=== PATIENT | female | born 1990 | race Caucasian/White ===

== ENCOUNTER 2019-10-01 08:49 | Inpatient (IN) | payer OTHER ==
[~2019-10-01] VITALS: Ht 170.2 cm; Wt 93.4 kg
[2019-10-01] VITALS (12 sets, daily range): BP systolic 113–135; BP diastolic 67–87
[~2019-10-01 08:49] MED LIST: ALL10TAB29 PO; CALC500C16 PO; COLA100C5 PO; CVS10CAP8 PO; PRENCHW PO
[2019-10-01] MEDS ORDERED: SING10TA32 PO (09:13)
[2019-10-01] MEDS ORDERED: LACTATED RINGER'S 1000 ML IV STA (12:51)
[2019-10-01] MEDS ORDERED: LR 1,000 ML IV SCH (12:51)
[2019-10-01] MEDS ORDERED: BUTORPHANOL 2 MG/ML INJ (J0595) IV PRN (13:00)
[2019-10-01] MEDS ORDERED: PROMETHAZINE INJ 25 MG/ML VIAL (J2550) IV ONE (13:00)
[2019-10-01 13:30] LABS: HEMATOCRIT 39.5 % (36.0-47.0); HEMOGLOBIN 13.2 g/dl (12.0-15.5); MEAN CORPUSCULAR HEMOGLOBIN 28.7 pg (27.0-33.0); MEAN CORPUSCULAR HGB CONC 33.4 g/dl (32.0-36.5); MEAN CORPUSCULAR VOLUME 85.9 fl (80.0-96.0); PLATELET COUNT, AUTOMATED 229 10^3/uL (150-450); WHITE BLOOD COUNT 10.2 10^3/uL (4.0-10.0)
--- NOTE | 2019-10-01 13:45 | HPEPDOC ---
Obstetrical History & Physical General Date of Admission Oct 01, 2019 at 12:51 History of Present Illness Zoe is a 29yo with SIUP at 38w6d by lmp c/w 10wk u/s presenting with pa inful, regular ctx since earlier this morning that wrap around her back. No LOF, no vaginal bleeding, good movement. No f/c/n/v/CP/SOB. 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, anxiety/depression (stable no meds) Height (inches): 67 Pre- weight (lbs.): 201 Admission Weight (lbs.): 206 Change in Weight (lbs.): 5 Past Medical History Past Obstetrical History : Past Obstetrical History: [facility] [employer] [facility] History: Abnormal Pap (HGSIL) Past Medical History Medical History History significant for gastric bypass (jose luis-en-Y) in 2018, starting BMI 31, asthma (stable no meds), and 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, anxiety/depression (stable no meds) Surgical History: Other (jose luis-en-Y 2017) Family History Significant Family History: Noncontributory Social History Marital Status: Family situation: Spouse/partner home Psychosocial History: Anxiety, Depression * Smoker: non-smoker Alcohol: Denies Drugs: denies Imunizations Tdap status: current Influenza Status: current Allergies Coded Allergies: No Known Allergies (Unverified , 09/30/19) Medications Scheduled Calcium Carbonate (Calcium) 500 Mg Tab.chew, 500 MG PO BID Cetirizine HCl (Cetirizine HCl) 10 Mg Tablet, 10 MG PO DAILY Docusate Sodium (Colace) 100 Mg Capsule, 100 MG PO DAILY Melatonin (Melatonin) 10 Mg Capsule, 10 MG PO DAILY Montelukast Sodium (Singulair) 10 Mg Tablet, 1 TAB PO DAILY Pnv No.118/Iron Fumarate/FA ( 19 Chewable Tablet) 1 Each Tab.chew, 1 CHW PO DAILY Physical Examination Physical Examination GENERAL: Alert and oriented times three. ABDOMEN: Gravid and non-tender to touch. FETUS: Is vertex (VTX) by sterile vaginal examination (SVE) EXTREMITIES: No edema Vital Signs/I&O Vital Signs Date Time Temp Pulse Resp B/P (MAP) Pulse Ox O2 Delivery O2 Flow Rate FiO2 10/01/19 09:04 98.5 96 18 114/78 (90) 98.5 Laboratory Data 24H LABS Laboratory Tests 2 10/01/19 12:55: Serology Scanned Report Hepatitis B Testing CBC/BMP 28wk H/H 12.9/38, plt 246 Pertinent Laboratoy Data Blood Type: B- RBC Antibody Screen: Negative HIV: Negative Hepatitis B: Negative Hepatitis C: Unknown Rapid Plasma Reagin: Nonreactive Rubella: Immune Varicella: Immune Chlamydia/Gonorrhea: Negative Group B Streptococcus: Negative Anatomy Ultrasound Ultrasound Date: Jul 18, 2019 Placenta Location: Anterior Normal Anatomy: Yes Placenta Previa: No Other Ultrasounds Sep growth 55%ile Steroid Therapy Steroid Therapy: No Vaginal Examination Dilation: 5 cm Effacement: 80% Station: -1, 0 Cervical Consistency: Soft Cervical Position: Anterior Presentation: Cephalic presentation Assessment Heart Rate (FHR): 130 Variability: Moderate Accelerations: Positive Decelerations: None Tocometer Contractions: Yes Frequency: regular, every 2-5 min. Duration: greater than 60 seconds Strength: palpated as moderate Assessment/Plan Assessment Zoe is a 29yo with SIUP at 38w6d by lmp c/w 10wk u/s in active labor with regular ctx, SCE now 5/80/-1 after two hours of monitoring. Cat I FHRT. Vitals wnl, afebrile, benign exam. Cephalic by SCE. GBS negative. Patient had been counseled previously regarding possibility of need for section because she has a hx of HGSIL and had what was thought to be significant bleeding at time of prior colposcopy. However, on counseling the patient today, we discussed that cervical dysplasia is not an indication for section per ACOG guidelines. We discussed she may have a section for arrest of dilation/descent or NRFHT like any labor patient, but at this point my recommendation is for continuing with labor and vaginal delivery if feasible since the risks for her are much less if she has a vaginal delivery. We discussed the specific risks of vaginal delivery vs section. At the end of the counseling, patient was given time to consider, and she is now opting for vaginal delivery. 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 Diet: clear liquids Group B Streptococcus (GBS) negative Labs and intravenous (IV) per unit protocol. Lactated Ringers (LR): Bolus 500 mL, then at 125 mL/hr. Anticipate normal spontaneous delivery () Candidate for epidural in active labor and IV stadol/phenergan in latent labor MD Madelaine Mathews Katrina D MD Oct 01, 2019 13:44
--- NOTE | 2019-10-01 17:09 | IPNPDOC ---
Text Note Date of Service The patient was seen on 10/01/19. NOTE Intrapartum Note Pt doing well, requested AROM to get things moving. Does not yet request pain medication. 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 Debbie Burkett MD VS,Diane, I+O VS, Diane, I+O Laboratory Tests 10/01/19 13:13 Vital Signs Date Time Temp Pulse Resp B/P (MAP) Pulse Ox O2 Delivery O2 Flow Rate FiO2 10/01/19 11:29 98.4 107 18 133/87 (102) 98.4 Debbie Burkett MD Oct 01, 2019 17:09
[2019-10-01] MEDS ORDERED: OXYTOCIN 30 UNITS IN 0.9% NaCl 500ML IV BAG (J2590) As Ordered ONE (19:13)
[2019-10-01] MEDS ORDERED: MEASLES,MUMPS,RUBELLA VACCINE INJ (MMR-II) (90707) SC SCH (22:00)
[2019-10-01] MEDS ORDERED: IBUPROFEN 800 MG TAB PO PRN (22:00)
[2019-10-01] MEDS ORDERED: ACETAMINOPHEN TAB 650MG DOSE (2X325MG) PO PRN (22:00)
[2019-10-01] MEDS ORDERED: IBUPROFEN 600 MG TAB PO PRN (22:00)
[2019-10-01] MEDS ORDERED: RHOGAM 300 MCG (1500 IU) INJ (J2790) IM SCH (22:00)
[2019-10-01] MEDS ORDERED: DOCUSATE SODIUM 100 MG CAP PO PRN (22:00)
[2019-10-01] MEDS ORDERED: OXYTOCIN DRIP 30 UNITS in IV 1 EA IV SCH (22:00)
--- NOTE | 2019-10-01 22:07 | DNPDOC ---
[facility] Delivery Note Delivery Note DATE OF DELIVERY: 01 October 2019 PREDELIVERY DIAGNOSIS: 38w6d gestation and labor hx of jose luis-en-y gastric bypass POST DELIVERY DIAGNOSIS: Delivered. PROCEDURE: Spontaneous vaginal delivery CORRECTIONS UNIT SUPERVISOR: Dr. Debbie Burkett MD ANESTHESIA: 1% lidocaine for repair ESTIMATED BLOOD LOSS: 300 mL. FINDINGS: 6 pound 2 ounce (2780g) male infant, Score 9/9 DELIVERY SUMMARY: Zoe is a 29yo [id number] s/p uncomplicated at 2043 on 10/01/2019 after presenting in active labor at 38w6d. She progressed in labor normally until AROM was performed (clear) and advanced to C/C/0 at which point she began pushing. Infant's head delivered OA, restituted CESAR. Right anterior shoulder delivered followed by posterior shoulder and corpus. was vigorous with spontaneous cry, placed on maternal abdomen and cord was clamped x2 and cut by FOB after approximately 2 minutes. 's nose and mouth were suctioned with bulb suction. Apgars 9/9. Cord blood obtained for MBT B neg. With traction on the umbilical cord and uterine massage, placenta delivered spontaneously and intact with 3 vessel centrally inserted cord. More uterine massage was performed and fundus was then firm at u-1cm. Inspection of perineum and vagina revealed superficial bilateral labial lacerations and a deeper left sulcal laceration which were all repaired in routine fashion with 3-0 and 4-0 vicryl with complete hemostasis and reapproximation. All counts correct x2. Mom and infant were doing well when I left the room. MD Madelaine Mathews Katrina D MD Oct 01, 2019 22:03
[2019-10-02] MEDS: ACETAMINOPHEN 500 MG TAB PO PRN ×3 (03:01→23:57)
[2019-10-02] MEDS ORDERED: LIDOCAINE 1% MDV 20ML VIAL As Ordered ONE (03:31)
[2019-10-02] MEDS ORDERED: LIDOCAINE 1% MDV 20ML VIAL SC ONE ×2 (03:45→04:00)
[2019-10-02 05:50] VITALS: BP 124/77
--- NOTE | 2019-10-02 08:07 | IPNPDOC ---
Progress Note Date of Service: Oct 02, 2019 Day#: 1 Progress Note PPD 1 SUBJECT: Zoe is a 29yo [id number] s/p uncomplicated late in the evening on 10/01/2019 after presenting in active labor at 38w6d, doing well day # 1. She has been ambulating, voiding spontaneously without issue and tolerating regular diet. Bottle feeding by choice though still interested in or pumping. Reports lochia is like a heavy period. No f/c/n/v/CP/SOB. OBJECTIVE: VITAL SIGNS: Within normal limits, afebrile. Alert and oriented times three. Abdomen: Fundus firm at U-2. Soft, NTTP. Extremities: no edema of BLE ASSESSMENT: Zoe is a 29yo [id number] s/p uncomplicated late in the evening on 10/01/2019 after presenting in active labor at 38w6d, doing well day # 1. Hx is significant for jose luis-en-Y gastric bypass in 2018. Vitals within normal limits, afebrile, hemodynamically stable with no evidence of infection. PLAN: 1. Routine care 2. Tylenol for pain. 3. Encourage breast feeding (or pumping) and ambulation. 4. Unsure about contraception, will discuss more at PP visit 5. Regular diet 6. Possible d/c tomorrow if meeting all milestones Dr. Debbie Burkett MD VS, I&O, 24H, Fishbone Vital Signs/I&O Vital Signs Date Time Temp Pulse Resp B/P (MAP) Pulse Ox O2 Delivery O2 Flow Rate FiO2 10/02/19 05:50 98.7 100 17 124/77 (93) 98 Room Air 98.7 I&O- Last 24 Hours up to 6 AM 10/02/19 05:59 Intake Total 120 ml Output Total 1100 ml Balance -980 ml Laboratory Data 24H LABS Laboratory Tests 2 10/01/19 12:55: Serology Scanned Report Hepatitis B Testing 10/01/19 13:13: Nucleated Red Blood Cells % (auto) 0.0, Hepatitis B Surface Antigen (Rapid) NEGATIVEL CBC/BMP Laboratory Tests 10/01/19 13:13 Debbie Burkett MD Oct 02, 2019 08:07
[2019-10-02] MEDS: PRENATAL VITAMINS CHEWABLE TABLET PO SCH (08:17)
[2019-10-02] MEDS: DOCUSATE SODIUM 100 MG CAP PO SCH (08:17)
[2019-10-02] MEDS: DIBUCAINE 1% OINTMENT 30GM TOP PRN (17:09)
[2019-10-02 17:57] VITALS: BP 124/63
[2019-10-02] MEDS ORDERED: ALBUTEROL 90 MCG/ACT 8GM HFA INHALER INH PRN (18:00)
[2019-10-03 05:58] VITALS: BP 129/66
[2019-10-03] MEDS ORDERED: DIBU10OI TOP (07:13)
[2019-10-03] MEDS ORDERED: VENTAER INH (07:13)
[2019-10-03] MEDS ORDERED: IBUP80TA PO (07:13)
[2019-10-03] MEDS: PRENATAL VITAMINS CHEWABLE TABLET PO SCH (07:53)
[2019-10-03] MEDS: DOCUSATE SODIUM 100 MG CAP PO SCH (07:53)
[2019-10-03] MEDS: DIBUCAINE 1% OINTMENT 30GM TOP PRN (07:53)
--- NOTE | 2019-10-03 10:07 | IPN ---
DATE OF SERVICE: 10/02/2019 This patient requested circumcision of her male . After discussing risks and benefits of circumcision and medical and nonmedical indications, penile block and aftercare expressed understandings of penile block aftercare and bleeding, signed the consent form. All questions were answered. 20 minute discussion. We await clearance by the felling bucking supervisor.
--- NOTE | 2019-10-03 18:01 | DSES ---
DATE OF ADMISSION: 10/01/2019 DATE OF DISCHARGE: 10/03/2019 A 29-year-old 1, para 1, came in at 38 weeks and 6 days in active labor, was booked for elective primary section; however, after discussion, decided to have a vaginal delivery. She had a spontaneous vaginal delivery of a male, 6 pounds 2 ounces, 2780 grams, scores of 9 and 9 at one and five minutes respectively. She had a superficial tear, which was repaired in the usual fashion using 1% lidocaine. Her risk factors: BMI of 31, Rh negative, high grade squamous intraepithelial lesion (HSIL), asthma and anxiety and depression. Her admitting hemoglobin 13.2, hematocrit 39.5 and platelets are 229. Her vital signs on discharge: Her blood pressure was 129/66, respirations 17, pulse 91 and temperature 97.6. We discussed phlebitis, cystitis, mastitis, endometritis, cellulitis, diet, exercise, pain management, perineal and breast care. The patient was discharged with medications at home, has a six week followup at [facility]. All questions were answered, 20-minute discussion. She is awaiting consultation with the vocational coordinator.
== END 2019-10-03 13:00 | disposition home or self-care (01) | DRG 807 ==
LOC: M LDO 08:49 → M LDI 12:51 → M OBS 23:38
PROVIDERS: ADMIT Obstetrics & Gynecology; ATTEND Obstetrics & Gynecology
PROC: 10E0XZZ Delivery of Products of Conception, External Approach (ICD-10-PCS; principal; 2019-10-01)
PROC: 10907ZC Drainage of Amniotic Fluid, Therapeutic from Products of Conception, Via Natural or Artificial Opening (ICD-10-PCS; 2019-10-01)
PROC: 0HQ9XZZ Repair Perineum Skin, External Approach (ICD-10-PCS; 2019-10-01)
DX: O99.844 Bariatric surgery status complicating childbirth (principal); Z37.0 Single live birth; Z3A.38 38 weeks gestation of pregnancy; O99.89 Other specified diseases and conditions complicating pregnancy, childbirth and the puerperium; R87.613 High grade squamous intraepithelial lesion on cytologic smear of cervix (HGSIL); O70.0 First degree perineal laceration during delivery

== ENCOUNTER 2020-10-21 11:00 | Outpatient (CLI) | payer OTHER ==
[~2020-10-21] VITALS: Ht 170.2 cm; Wt 90.5 kg
[~2020-10-21 11:00] MED LIST changes: -ALL10TAB29 PO; +CETI-24 PO; +DIBU10OI TOP; +IBUP80TA PO; +SING10TA32 PO; +VENTAER INH
[2020-10-21] MEDS ORDERED: IRON65TA2 PO (11:32)
[2020-10-21] MEDS ORDERED: FOLI20CA PO (11:32)
[2020-10-21] MEDS ORDERED: EMER1CHW PO (11:32)
[2020-10-21 11:35] VITALS: BP 131/90
[2020-10-21 12:01] VITALS: BP 136/85
[2020-10-21 13:27] VITALS: BP 120/84
--- NOTE | 2020-10-21 14:02 | REP ---
INDICATION: DI/DI TWINS GROWTH DOPPLERS AND BPP. COMPARISON: None. TECHNIQUE: Transabdominal obstetric sonography. FINDINGS: Diamniotic dichorionic twin gestation is observed. Twin a is cephalic along the maternal right. Placenta is anterior grade 2 without evidence of previa. heart rate is recorded at 141 beats per minute. Amniotic fluid is subjectively normal. The deepest pocket of amniotic fluid surrounding twin a is 3.2 cm. No anomaly is seen for fetus A. Following anatomic structures are identified and felt to be unremarkable: cranium, intracranial contents, lungs, four-chamber heart with left and right ventricular outflow tract views, diaphragm, left-sided stomach, abdominal wall cord insertion, kidneys and bladder, three-vessel cord. Nuchal fold face and profile spine, and extremities are less than optimally seen. Biometry chart fetus a: BPD 8.4 cm, 33 weeks 4 days Head circumference 31.2 cm, 34 weeks 6 days Abdominal circumference 26.6 cm, 30 weeks 5 days Femur length 6.0 cm, 31 weeks 0 days Humeral length 5.3 cm, 30 weeks 6 days HC AC ratio 1.17 (0.87628.13) Cephalic index normal 0.74 Estimated weight fetus a 1764 g, 3.89 lb, less than 3rd percentile for 34 weeks 1 day. Biophysical profile score 8 out of a possible 8 SD ratio in the umbilical cord artery by Doppler slightly elevated 4.92 (1.73-3.67) Fetus B is cephalic along the maternal left. Placenta is posterior grade 2 without evidence of previa. heart rate is recorded at 141 beats per minute. Amniotic fluid is subjectively normal. Deepest pocket of amniotic fluid surrounding fetus B is 3.8 cm. No anomaly is seen in fetus B. The following anatomic structures are identified felt to be unremarkable: cranium and intracranial contents, left and right ventricular outflow tract view, diaphragm, left-sided stomach, right and left kidney, urinary bladder, spine, three-vessel cord. Facial lungs and four-chamber heart view are less than optimal. Abdominal wall cord insertion is less than optimally seen. Extremities are less than optimally seen. Biometry chart: Fetus B BPD 8.4 cm, 33 weeks 6 days Head circumference 31.3 cm, 35 weeks 1 day Abdominal circumference 30.1 cm, 34 weeks 0 days Femur length 6.6 cm, 34 weeks 0 days Humeral length 5.9 cm, 34 weeks 1 day HC AC ratio normal 1.04 Cephalic index normal 0.74 Estimated weight 2350 g, 5 lb 2 oz, 57th percentile for 34 weeks 1 day Biophysical profile score 8 out of a possible 8 SD ratio slightly elevated 3.87 (1.7323.67) Closed cervical length measured transabdominally is 2.7 cm. IMPRESSION: Living twin intrauterine gestation. Fetus a is smaller. Estimated weight less than 3rd percentile whereas fetus B is in the 44th percentile. Asymmetric IUGR suspected. <Electronically signed by Kvng Cornejo > 10/21/20 [id number]
[2020-10-21 14:57] VITALS: BP 132/85
--- NOTE | 2020-10-21 16:39 | IPNPDOC ---
Text Note Date of Service The patient was seen on 10/21/20. NOTE 30yo at 34+1wks sent to L&D for labor check from clinic. She presented to clinic for COB appt and was c/o leaking and irregular ctx's. She also reportedly was feeling unwell noting she was having loose stools and fatigue. She was noted to have work-up in clinic with membranes found to be intact with SVE 3/50/-3. She was also noted to have recent growth scan showing deceleration in growth of baby A from 37th percentile on to 6th percentile on . She reports she is very anxious about delivery as she desires a vaginal . ROS: Denies VB or DFM. Denies BANDA, visual changes, RUQ pain, chest pain, SOB. Vitals: normotensive, afebrile NST: reactive for both babies and cat I on prolonged monitoring Frederic: irregular ctx's occurring [id number] apart PE: General: well-appearing, sitting upright in bed in NAD HEENT: NC/AT, airway patent and self-maintained RESP: no exaggerated respiratory effort appreciated ABD: gravid with S=D, nontender, soft : NEFG, SVE 3/50/-3 (unchanged from prior exam) very posterior, no abnml vaginal discharge appreciated, no pooling of fluid Ext: no edema Labs: GBS collected in clinic Rads: BPP showed 8/8 for both babies, IUGR at <3rd %ile for baby A, 44th percentile for baby B, MVP normal for both babies, umbilical dopplers slightly elevated for both babies with no reverse diastolic flow CONSULT: called [facility] and spoke with Dr. Meneses with decision made to give BTMZ today/tomorrow with [facility] appt on [id number]. IOL tentatively scheduled for 36wks on [id number] A/P: 30yo at 34+1wks presenting for labor check. BPP reassuring of both babies. Patient not in labor with no cervical change. -Patient to f/u in 24hrs for repeat BTMZ dosing, plan for NST tomorrow at time of presentation -Patient to f/u for [facility] appt as scheduled for IUGR of baby A on -Patient to f/u for COB appt next week -GBS collected today, patient to f/u for results All questions answered. Med rec done. VS,Fishbone, I+O VS, Fishbone, I+O Vital Signs Date Time Temp Pulse Resp B/P (MAP) Pulse Ox O2 Delivery O2 Flow Rate FiO2 10/21/20 14:57 103 18 132/85 (101) 10/21/20 11:35 97.8 RAMÍREZ CARVER DO Oct 21, 2020 16:39
== END 2020-10-21 16:10 | disposition home or self-care (01) ==
LOC: M LDO 11:00
DX: O30.009 Twin pregnancy, unspecified number of placenta and unspecified number of amniotic sacs, unspecified trimester (principal); Z3A.34 34 weeks gestation of pregnancy
CPT/HCPCS: 59025; 76811; 76812; 76819; 76820; 96372; G0378; G0463; J0702

== ENCOUNTER 2020-10-22 14:55 | Outpatient (CLI) | payer OTHER ==
[~2020-10-22] VITALS: Ht 170.2 cm; Wt 90.9 kg
[~2020-10-22 14:55] MED LIST changes: +EMER1CHW PO; +FOLI20CA PO; +IRON65TA2 PO
[2020-10-22] MEDS ORDERED: BETAMETHASONE SOLUSPAN 6MG/ML 5ML VIAL (J0702 PER 3MG) IM ONE (15:15)
[2020-10-22 15:17] VITALS: BP 140/80
--- NOTE | 2020-10-22 16:29 | IPNPDOC ---
Text Note Date of Service The patient was seen on 10/22/20. NOTE 30 yo at 34+2 weeks gestation with Di/Di twins presents to L&D for her 2nd BTMZ injection and an NST. Zoe reports feeling well and has no complaints. She feels much better as compared to yesterday and denies any significant contractions, leakage of fluid, or vaginal bleeding. She endorses movement. Vitals - VSS, afebrile, normotensive, non tachycardic General - AAOX3, sitting up in bed, NAD, pleasant and conversant Abdomen - Gravid uterus. No fundal tenderness. Extremities - No edema NST: Cat I tracing and reactive for both fetuses with moderate variability,+accels, no decels. No ctx on toco. BTMZ IM administered in triage. Reassuring statuses on NST. BTMZ administered. Zoe has no complaints today. She has an appointment in [place] with [facility] tomorrow due to IUGR of Baby A. She is to return to care sooner for bleeding, contractions, leakage of flu id, decreased movement, or any other urgent concerns. All questions answered. Manny Casillas DO VS,Joane, I+O VS, Fishbone, I+O Vital Signs Date Time Temp Pulse Resp B/P (MAP) Pulse Ox O2 Delivery O2 Flow Rate FiO2 10/22/20 15:17 97.9 107 20 140/80 (100) Room Air MANNY CASILLAS DO Oct 22, 2020 16:29
== END 2020-10-22 16:25 | disposition home or self-care (01) ==
LOC: M LDO 14:55
PROVIDERS: ATTEND Registered Nurse
DX: O30.043 Twin pregnancy, dichorionic/diamniotic, third trimester (principal); Z3A.34 34 weeks gestation of pregnancy
CPT/HCPCS: 96372; G0378; J0702

== ENCOUNTER 2020-10-27 11:34 | Outpatient (CLI) | payer OTHER ==
[~2020-10-27] VITALS: Ht 170.2 cm; Wt 89.0 kg
[2020-10-27 11:55] VITALS: BP 124/82
--- NOTE | 2020-10-27 14:02 | IPNPDOC ---
Obstetrical Progress Note Date of Service Oct 27, 2020 Subjective 30 yo at 35w0d with NOAH 01 DEC 2020 presents to L&D from the clinic for prolonged monitoring for tachycardia for both twin A&B. She reports that she has been feeling "crampy for a while now." She denies contractions, leaking of fluid, vaginal bleeding, and reports positive movement x2. Objective She was placed on NST for 2 hours. NST reviewed: Reactive x2 Twin A:130/moderate variability/accels present/absent decels Twin B: 135/moderate variability/accels present/absent decels No contractions noted Cervical exam is unchanged from when she was last checked at her appointment in the clinic today around 1030. Assessment: Di/Di Twins Hx of bariatric surgery Asthma growth discordance: IUGR of twin A Tocometer Contractions: No Sterile Vaginal Examination Dilation: 3 cm Effacement (%): 70% Station: -2 Cervical Consistency: Medium Cervical Position: Posterior Assessment and Plan Age: 9 : 2 Term: 1 Pre-term: 0 Abortions: 0 Livin EGA at Admission: 35 (+0) Weeks & Days 35w0d Status: Reassuring Anticipate: Other (Discharge to home, certified not in labor) Additional Comments Recommended to increase hydration to 3-4 liters of water per day FKC and PTL precautions discussed Recommended to keep all appointments with [facility] Return to L&D if symptoms worsen or persist. 15 minutes of time spent with patient to review EFM strip, assessment, and discuss plan of care/discharge instructions KEITH NAJERA CNM Oct 27, 2020 14:02
== END 2020-10-27 13:55 | disposition home or self-care (01) ==
LOC: M LDO 11:34
PROVIDERS: ATTEND Registered Nurse Maternal Newborn
DX: O30.043 Twin pregnancy, dichorionic/diamniotic, third trimester (principal); Z3A.35 35 weeks gestation of pregnancy
CPT/HCPCS: 59025; G0378; G0463

== ENCOUNTER 2020-10-30 10:49 | Outpatient (CLI) | payer OTHER ==
[~2020-10-30] VITALS: Ht 170.2 cm; Wt 89.0 kg
[2020-10-30] MEDS ORDERED: MAPA500T2 PO (11:08)
[2020-10-30 11:11] VITALS: BP 138/90
[2020-10-30 11:52] VITALS: BP 136/91
[2020-10-30 12:08] VITALS: BP 144/92
[2020-10-30 12:23] VITALS: BP 149/97
[2020-10-30 12:47] VITALS: BP 137/89
--- NOTE | 2020-10-30 13:13 | IPNPDOC ---
Text Note Date of Service The patient was seen on 10/30/20. NOTE 10/30/20 SEEN RE CONTRACTIONS Q3-7 MINUTES NO VAGINAL BLEEDING NO DISCHARGE . CALLED AT 0600 SHOWED UP AT 1200 HOURS REVIEWED CATEGORY 1 STRIP OCCASIONAL CONTRACTION LABILE BLOOD PRESSURE HAS NOTHING TO DRINK SINCE 0500 HOURS. PELVIC EXAMINATION CERVIX SOFT 70% EFFACED -2 STATION 3-4 CM POSTERIOR NO BLOOD SHOW NO DISCHARGE. PATIENT DEHYDRATED INCREASE FLUIDS NOT ACTIVE LABOR DISCUSSED PLAN FOR LABOR PARAMETERS RE IV LINE X 2 EPIDURAL EXPRESSED OK AND UNSURE WHY NOT IN LABOR. DISCUSSED THAT UTERUS OVERDISTENDED DI/DI TWINS DEHYDRATED NOT ACTIVE LABOR PLAN DISCHARGE WITH PRECAUTIONS. REVIEWED BLOOD PRESSURES ERRATIC BUT STABLE NO SIGNS PRE E . DISCHARGED INITIAL URINE 1.025 PH 6 KETONE +1 TRACE BLOOD VS,Fishbone, I+O VS, Fishbone, I+O Vital Signs Date Time Temp Pulse Resp B/P (MAP) Pulse Ox O2 Delivery O2 Flow Rate FiO2 10/30/20 12:47 100 18 137/89 (105) 10/30/20 11:11 98.3 Ollie Mcmullen MD Oct 30, 2020 13:12
== END 2020-10-30 13:10 | disposition home or self-care (01) ==
LOC: M LDO 10:49
PROVIDERS: ATTEND Registered Nurse Maternal Newborn
DX: O47.03 False labor before 37 completed weeks of gestation, third trimester (principal); O99.280 Endocrine, nutritional and metabolic diseases complicating pregnancy, unspecified trimester; E86.0 Dehydration; Z88.8 Allergy status to other drugs, medicaments and biological substances; Z3A.00 Weeks of gestation of pregnancy not specified
CPT/HCPCS: 59025; G0378; G0463

== ENCOUNTER 2020-11-04 07:47 | Inpatient (IN) | payer OTHER ==
[2020-11-04] VITALS (32 sets, daily range): BP systolic 106–146; BP diastolic 65–106
[~2020-11-04] VITALS: Ht 170.2 cm; Wt 91.8 kg
[~2020-11-04 07:47] MED LIST changes: +MAPA500T2 PO
[2020-11-04] MEDS ORDERED: LR 1,000 ML IV SCH (08:52)
[2020-11-04] MEDS ORDERED: OXYTOCIN DRIP 30 UNITS in IV 1 EA IV SCH ×2 (09:00→17:04)
[2020-11-04 09:30] LABS: HEMATOCRIT 36.9 % (36.0-47.0); HEMOGLOBIN 12.3 g/dl (12.0-15.5); MEAN CORPUSCULAR HEMOGLOBIN 28.3 pg (27.0-33.0); MEAN CORPUSCULAR HGB CONC 33.3 g/dl (32.0-36.5); MEAN CORPUSCULAR VOLUME 84.8 fl (80.0-96.0); PLATELET COUNT, AUTOMATED 187 10^3/uL (150-450); RED BLOOD COUNT 4.35 10^6/uL (4.00-5.40); WHITE BLOOD COUNT 8.9 10^3/uL (4.0-10.0)
--- NOTE | 2020-11-04 09:35 | HPEPDOC ---
Obstetrical History & Physical General Date of Admission Nov 04, 2020 at 07:47 History of Present Illness 30 yo at 36+1 weeks gestation by LMP of [id number] c/w 9+0 week US on with Di/Di twins presents to L&D today for IOL due to IUGR of Twin A (between 3rd - 8th percentile). Zoe reports feeling well today and has no complaints. She denies any vaginal bleeding, severe contractions, or leakage of fluid. She endorses movement. Chief Complaint: Induction of labor Information Provided By: Patient Age: 30 : 2 Term: 1 Pre-term: 0 Abortions: 0 Livin Care Care: Good Care Dating Final EDC: Dec 01, 2020 Final EDC for Daily Update: Dec 01, 2020 Final EDC by: LMP (LMP of [id number] set NOAH of [id number]), 1st trimester (US) (9+0 week US on [id number] c/w LMP dating. 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 positive) Past Medical History Medical History Rh negative Overweight Asthma Surgical History: Other (Gastric bypass, [place] teeth) Family History Significant Family History: No pertinent family hx Social History Marital Status: Family situation: Spouse/partner home Psychosocial History: No pertinent psych hx * Smoker: non-smoker Alcohol: Denies Drugs: denies Imunizations Tdap status: current Influenza Status: declined Allergies Coded Allergies: prednisone (Verified Allergy, Mild, HIVES, 10/27/20) Medications Scheduled Calcium Carbonate (Calcium) 500 Mg Tab.chew, 500 MG PO BID Cetirizine HCl (Cetirizine HCl) 10 Mg Tablet, 10 MG PO DAILY Docusate Sodium (Colace) 100 Mg Capsule, 100 MG PO DAILY Ferrous Sulfate (Iron) 325 Mg Tablet, 1 TAB PO DAILY Folic Acid (Folic Acid) 20 Mg Capsule, 1 CAP PO DAILY Pnv No.118/Iron Fumarate/FA ( 19 Chewable Tablet) 1 Each Tab.chew, 1 CHW PO DAILY Vit C/Ascorb Sod/Multivit-Min (Emergen-C 500 mg Chewable Tab) 500 Mg Tab.chew, 1 CHW PO BID Scheduled PRN Albuterol Sulfate (Ventolin Hfa) 18 Gm Hfa.aer.ad, 2 PUFF INH Q4HP PRN for SHORTNESS OF BREATH Miscellaneous Medications Acetaminophen (Mapap) 500 Mg Tablet, 1,000 MG PO Physical Examination Physical Examination GENERAL: Alert and oriented times three. ABDOMEN: Gravid and non-tender to touch. FETUS: Is vertex (VTX) by sterile vaginal examination (SVE). EXTREMITIES: No edema. Bedside TAUS: Twin gestation. Baby A cephalic with FHR 145. Baby B cephalic with FHR 150. Vital Signs/I&O Vital Signs Date Time Temp Pulse Resp B/P (MAP) Pulse Ox O2 Delivery O2 Flow Rate FiO2 11/04/20 08:12 98.1 94 18 140/87 (104) Laboratory Data 24H LABS Laboratory Tests 2 11/04/20 07:55: Serology Scanned Report Hepatitis B Testing Urine Culture: No Growth Pertinent Laboratoy Data Blood Type: B- RBC Antibody Screen: Negative HIV: Negative Hepatitis B: Negative Hepatitis C: Unknown Rapid Plasma Reagin: Nonreactive Rubella: Immune Varicella: Immune Chlamydia/Gonorrhea: Negative Group B Streptococcus: Negative Quad Screen Test: Unknown Cystic Fibrosis: Unknown Glucose Tolerance Test: 0 (Patient did two weeks of fingersticks. Passed screening) Anatomy Ultrasound Placenta Location: Twin A Normal Anatomy: Yes Placenta Previa: No Other Ultrasounds anatomy scan demonstrated normal anatomy for both twin A and Twin B. Anterior placenta Twin A and Posterior placenta in Twin B. growth scan on 06Oct2020: Baby A cephalic with EFW 1556 grams (6th p ercentile), Baby B cephalic with EFW 1944 grams (49th percentile) growth scan on 21Oct2020: Baby A cephalic with EFW 1764 grams (3rd percentile), Baby B cephalic with EFW 2350 grams (57th percentile) Steroid Therapy Steroid Therapy: Yes (Received BTMZ) Date #1: Oct 21, 2020 Date #2: Oct 22, 2020 Reason labor concern Vaginal Examination Dilation: 4 cm Effacement: 80% Station: -2 Cervical Consistency: Soft Cervical Position: Posterior Presentation: Cephalic presentation (Both Baby A and Baby B cephalic by bedside TAUS) Position: Vertex (occiput) Assessment Heart Rate (FHR): 145 (Baby A FHR 140s, Baby B FHR 150) Variability: Moderate Accelerations: Positive Decelerations: None Tocometer Contractions: No Assessment/Plan Assessment 30 yo at 36+1 weeks gestation with Di/Di twins presents to L&D for IOL for isolated IUGR of Baby A (between 3rd and 8th percentile by EFW). Plan Admit for IOL for IUGR of Twin A. [facility] in [place] recommended delivery between 36-37 weeks in twins with isolated IUGR. Zoe desires a vaginal delivery and both babies are cephalic presenting. Last completed dose of BTMZ 13 days ago. No indication for rescue steroids. Apply IV fluids. GBS negative. Clear liquid diet. Cervix favorable. Will start IOL with pitocin. Patient may have epidural if desired. Plan for delivery in the OR. Labor and Delivery Counseling Labor and Delivery counseling: Plan will be to deliver your babies through the vagina with possible assistance of forceps or vacuum device if needed for maternal or indications. Forceps and vacuum are devices that can assist with vaginal delivery when normal pushing efforts cannot achieve delivery on their own or when delivery is needed in an emergency for baby's well-being. Medications may be required to induce or augment (help) your labor in order to achieve a vaginal delivery. An episiotomy may be required to help your babies to delivery vaginally. You may also require repair of any lacerations or tears of your vagina or vulva that are caused by delivery. In some cases, emergencies can occur that require an emergency section delivery so quickly that there may not be enough time to stop and complete consent forms for section. Understand that if this occurs, your providers will discuss the need for a section with you before they proceed with surgery. section is the delivery of your baby or babies through an incision in your abdomen. In some situations, section may be safer to mom and baby than continuing labor and is only performed when clinically indicated. Plan for delivery in the OR of your twins. Risks of vaginal delivery include but are not limited to: Bleeding, infection, injury to the vagina, pelvic structures, injury to baby, damage to the uterus, reactions to anesthesia, uterine rupture, risk of hysterectomy for life threatening bleeding, or . Medications used to induce or augment labor may increase your risk for infection, uterine tachysystole, uterine rupture, heart rate abnormalities, need for emergency delivery or possible hysterectomy, and hemorrhage. Additional risks for use of forceps and vacuum include: increased risk of perineal and vaginal lacerations, risk of urinary or bowel incontinence, increased risk of injury to baby with bruising, scratches, hematomas on the head, or intracranial bleeding. Ms. Morgan verbalizes understanding of these risks and elects to proceed with IOL. She understands that delivery will occur in the OR and there is a possibility of section for one or both of her babies should an emergency arise. She also consents to blood products for transfusion should they become necessary. All patient and questions answered. DO ERIK Bahena CHRISTOPHER J. DO Nov 04, 2020 09:35
[2020-11-04 10:10] LABS: ALT/SGPT 17 U/L (12-78); BILIRUBIN,TOTAL 0.5 MG/DL (0.2-1.0); CREATININE FOR GFR 0.54 MG/DL (0.55-1.30); GLOMERULAR FILTRATION RATE > 60.0 (>60); LDH LACTATE DEHYDROGENASE 172 U/L (84-246)
[2020-11-04] MEDS ORDERED: ACETAMINOPHEN 500 MG TAB PO PRN (10:55)
[2020-11-04] MEDS ORDERED: ROPIVACAINE HCL IVBAG 200 ML EPIDURAL SCH (13:25)
[2020-11-04] MEDS ORDERED: ONDANSETRON 4MG/2ML VIAL IV PRN (13:25)
[2020-11-04] MEDS ORDERED: diphenhydrAMINE 50MG/ML VIAL (J1200) IV PRN (13:25)
[2020-11-04] MEDS ORDERED: ePHEDrine SULFATE 25 MG/5 ML(5MG/ML) SYRINGE IV PRN (13:25)
[2020-11-04] MEDS ORDERED: NALOXONE INJ 0.4MG/1ML VIAL (J2310 PER 1MG) IV PRN (13:25)
[2020-11-04] MEDS ORDERED: EPIDURAL COMMENT XX SCH (13:25)
[2020-11-04] MEDS ORDERED: LACTATED RINGER'S 1000 ML IV PRN (13:25)
[2020-11-04] MEDS ORDERED: EPIDURAL/PCA KEYS XX PRN (13:25)
[2020-11-04] MEDS ORDERED: REFRIGERATOR IV KEYS XX PRN (13:25)
[2020-11-04] MEDS ORDERED: FENTANYL 2MCG/ML ROPIVACAINE 0.2% IN 0.9% NACL 100ML IVBAG As Ordered ONE (13:33)
[2020-11-04] MEDS ORDERED: FENTANYL/ROPIVACAINE/NACL BAG 100 ML EPIDURAL SCH (14:25)
--- NOTE | 2020-11-04 15:36 | IPNPDOC ---
Text Note Date of Service The patient was seen on 11/04/20. NOTE Presented to room for assessment of progress. Zoe is comfortable with her epidural in place. Cervix: 6/80/-1. AROM performed productive of blood tinged, clear fluid. FHR Cat I for both baby A and baby B with +accels, and no decels for each. Ctx regular Q2-3 mins. Pitocin currently at 6mU. Will continue to titrate to effect. Will move to OR for delivery when indicated. All patient questions answered. DO Vinny VS,Diane, I+O VS, Diane, I+O Laboratory Tests 11/04/20 09:20 Vital Signs Date Time Temp Pulse Resp B/P (MAP) Pulse Ox O2 Delivery O2 Flow Rate FiO2 11/04/20 13:40 103 18 140/82 (101) 11/04/20 10:51 98.6 MANNY VALENCIA DO Nov 04, 2020 15:36
[2020-11-04] MEDS ORDERED: ACETAMINOPHEN TAB 650MG DOSE (2X325MG) PO PRN (17:05)
[2020-11-04] MEDS ORDERED: MEASLES,MUMPS,RUBELLA VACCINE INJ (MMR-II) (90707) SC SCH (17:05)
[2020-11-04] MEDS ORDERED: RHOGAM 300 MCG (1500 IU) INJ (J2790) IM SCH (17:05)
[2020-11-04] MEDS ORDERED: IBUPROFEN 600MG TAB PO PRN (17:05)
[2020-11-04] MEDS ORDERED: DIBUCAINE 1% OINTMENT 30GM TOP PRN (17:05)
[2020-11-04] MEDS ORDERED: PROMETHAZINE 25 MG TAB PO PRN (17:05)
[2020-11-04 17:19] LABS: CORD GAS ABE V -1.4; CORD GAS HCO3 V 25.2 MEQ/L; CORD GAS O2 SAT V 52.6 %; CORD GAS PCO2 V 48.7 mmHg; CORD GAS PH V 7.331 UNITS; CORD GAS PO2 V 20.8 mmHg; CORD GAS SBC V 22.1 MEQ/L; CORD GAS TCO2 V 26.7 MEQ/L
[2020-11-04 17:20] LABS: CORD GAS ABE A -3.9; CORD GAS HCO3 A 22.5 MEQ/L; CORD GAS O2 SAT A 86.9 %; CORD GAS PCO2 A 45.8 mmHg; CORD GAS PH A 7.31 UNITS; CORD GAS PO2 A 39.7 mmHg; CORD GAS TCO2 A 23.9 MEQ/L
[2020-11-04 17:24] LABS: CORD GAS ABE V -3.3; CORD GAS HCO3 A 21.7 MEQ/L; CORD GAS HCO3 V 21.5 MEQ/L; CORD GAS O2 SAT A 77.5 %; CORD GAS O2 SAT V 80.5 %; CORD GAS PCO2 A 38.2 mmHg; CORD GAS PCO2 V 38.3 mmHg; CORD GAS PH A 7.373 UNITS; CORD GAS PH V 7.368 UNITS; CORD GAS PO2 A 30.8 mmHg; CORD GAS SBC A 21.5 MEQ/L; CORD GAS SBC V 21.3 MEQ/L; CORD GAS TCO2 A 22.9 MEQ/L; CORD GAS TCO2 V 22.7 MEQ/L
--- NOTE | 2020-11-04 18:00 | DNPDOC ---
[facility] Delivery Note Delivery Note DATE OF DELIVERY: 04Nov2020 at ~1640 PREDELIVERY DIAGNOSIS: Di/Di twins at 36+1 weeks gestation with IUGR twin A (3rd-8th percentile) POST DELIVERY DIAGNOSIS: Delivered vaginally. PROCEDURE: Spontaneous vaginal delivery of twins KILN WORKER: Dr. Casillas ANESTHESIA: Neuraxial (epidural). ESTIMATED BLOOD LOSS: 300 mL. FINDINGS: Baby A delivered in cephalic presentation, weight 4lbs 6oz and Apgars 9/9. Baby B delivered in cephalic presentation, weight 5lbs 5oz, Apgars 9/9. Baby B with bandolier cord around right shoulder and double footling cord DELIVERY SUMMARY: Presented to labor room as Zoe felt significant vaginal pressure. Cervical exam revealed Baby A at C/C/+2. She was taken to the OR (which had previously been set up). Anesthesia, neonatology, the nurse team, and the surgical supplies sterilizer were all notified. Zoe was placed on the OR table with her feet up in stirrups. She was prepped for delivery. With excellent effort and only two pushes Baby A delivered. Presentation was NUHA with restitution to ROT. The left anterior shoulder delivered with gentle guidance followed easily by the remainder of the body. The baby was dried and stimulated on the field and a bulb suction was used. The infant cried vigorously. I then clamped and cut the 3 vessel umbilical cord after appropriate time delay. Baby A was then handed over to the nurse team and taken to the warmer. The clamp was left on Baby A's umbilical cord. Bedside US demonstrated Baby B to have a HR in the 130s. Cervical exam revealed cervix at C/C/-1 with a bulging amniotic sac. Baby B's head was cephalic presenting and well engaged. Amniotomy was performed and it was productive of a large amount of clear fluid. Zoe started pushing again and with excellent effort Baby B delivered after less than 5 minutes of pushing. Presentation was CESAR with restitution to LOT. The right anterior shoulder delivered with gentle guidance followed easily by the remainder of the body. There was a bandolier cord and a double footling cord that was delivered through and reduced manually. Baby B was dried and stimulated on the field and a bulb suction was used. Baby B also cried vigorously. I then clamped and cut the 3 vessel umbilical cord after appropriate time delay. Baby B was then handed over to the nurse team and taken to the warmer. Cord blood was then taken from each cord to obtain cord gases. 3rd stage was then completed with gentle traction on both umbilical cords and it was productive of two, intact placentas in their entirety. The uterine fundus was firmed with massage and pitocin was administered IV bolus. Inspection of the vagina, cervix, labia, and perineum revealed a small first degree perineal laceration. This was repaired in the usual fashion with 3-0 vicryl suture. There was excellent hemostasis and cosmesis after the repair. 800mcg of cytotec was then placed rectally. The uterine fundus was palpated again and remained firm. Mother and infants stable when I left the room. DO ERIK Bahena CHRISTOPHER J. DO Nov 04, 2020 18:00
[2020-11-04] MEDS: IBUPROFEN 800 MG TAB PO PRN (18:48)
[2020-11-05] MEDS: ACETAMINOPHEN 500 MG TAB PO PRN ×4 (00:16→23:32)
[2020-11-05] MEDS: IBUPROFEN 800 MG TAB PO PRN ×3 (02:29→20:32)
[2020-11-05] MEDS: DOCUSATE SODIUM 100MG CAPSULE PO PRN ×2 (06:03→20:32)
[2020-11-05 06:16] VITALS: BP 130/73
[2020-11-05 06:55] VITALS: BP 111/66
--- NOTE | 2020-11-05 07:00 | IPNPDOC ---
Progress Note Date of Service: Nov 05, 2020 Progress Note Zoe is a 30 yo G2 now P3 who underwent an uncomplicated of twins yesterday afternoon after being admitted for an IOL for isolated IUGR of twin A. She reports feeling well this morning and has no complaints. She is ambulating, voiding without issue, had a bowel movement, is tolerating a regular diet, and has had minimal lochia. She denies any pain. Vitals - VSS, afebrile, normotensive, non tachycardic General - sitting up in bed, pleasant and conversant, NAD Abdomen - Fundus firm at U-1. No fundal tenderness Extremities - no edema Zoe is doing well and is making an appropriate recovery. She had mildly elevated blood pressures intrapartum and she ruled in for gestational hypertension. These have since resolved and she is normotensive. One twin still in the NICU but will likely be leaving soon. Will continue to encourage ambulation and today. Continue routine care. Anticipate dc home tomorrow or the day after depending on infant discharges. All questions answered. Manny Casillas, DO VS, I&O, 24H, Diane Vital Signs/I&O Vital Signs Date Time Temp Pulse Resp B/P (MAP) Pulse Ox O2 Delivery O2 Flow Rate FiO2 11/05/20 06:16 97.7 80 130/73 (92) Room Air 11/04/20 18:45 16 98 I&O- Last 24 Hours up to 6 AM 11/05/20 06:00 Intake Total 3996 ml Output Total 1600 ml Balance 2396 ml Laboratory Data 24H LABS Laboratory Tests 2 11/04/20 07:55: Serology Scanned Report Hepatitis B Testing 11/04/20 09:20: Nucleated Red Blood Cells % (auto) 0.0, Glomerular Filtration Rate > 60.0, Uric Acid 5.0, Total Bilirubin 0.5, Aspartate Amino Transf (AST/SGOT) 15, Alanine Aminotransferase (ALT/SGPT) 17, Lactate Dehydrogenase 172, Syphilis Serology NONREACTIVE 11/04/20 16:46: Cord Arterial Blood pH 7.310, Cord Arterial Blood PCO2 45.8, Cord Arterial Blood PO2 39.7, Cord Arterial Blood HCO3 22.5, Cord Arterial Blood Total CO2 23.9, Cord Arterial Blood Base Excess -3.9, Cord Arterial Base Excess (Standard 21.0, Cord Arterial Bld Oxygen Saturation 86.9, Cord Venous Blood pH 7.331, Cord Venous Blood PCO2 48.7, Cord Venous Blood PO2 20.8, Cord Venous Blood HCO3 25.2, Cord Venous Blood Total CO2 26.7, Cord Venous Base Excess (Actual) -1.4, Cord Venous Base Excess (Standard) 22.1, Cord Venous Blood Oxygen Saturation 52.6 11/04/20 16:52: Cord Arterial Blood pH 7.373, Cord Arterial Blood PCO2 38.2, Cord Arterial Blood PO2 30.8, Cord Arterial Blood HCO3 21.7, Cord Arterial Blood Total CO2 22.9, Cord Arterial Blood Base Excess -3.0, Cord Arterial Base Excess (Standard 21.5, Cord Arterial Bld Oxygen Saturation 77.5, Cord Venous Blood pH 7.368, Cord Venous Blood PCO2 38.3, Cord Venous Blood PO2 34.0, Cord Venous Blood HCO3 21.5, Cord Venous Blood Total CO2 22.7, Cord Venous Base Excess (Actual) -3.3, Cord Venous Base Excess (Standard) 21.3, Cord Venous Blood Oxygen Saturation 80.5 CBC/BMP Laboratory Tests 11/04/20 09:20 MANNY CASILLAS DO Nov 05, 2020 07:00
[2020-11-05] MEDS: PRENATAL VITAMINS CHEWABLE TABLET PO SCH (08:24)
[2020-11-05 10:40] VITALS: BP 122/66
[2020-11-05 18:00] VITALS: BP 125/91
[2020-11-06] MEDS: IBUPROFEN 800 MG TAB PO PRN (05:10)
[2020-11-06 06:00] VITALS: BP 135/83
--- NOTE | 2020-11-06 06:13 | IPNPDOC ---
Progress Note Date of Service: Nov 06, 2020 Day#: 1 Progress Note Zoe is a 30 yo G2 now P3 who underwent an uncomplicated of twins and is now PPD2 after being admitted for an IOL for isolated IUGR of twin A. She reports feeling well this morning and has no complaints. She is ambulating, voiding without issue, had a bowel movement, is tolerating a regular diet, and has had minimal lochia. She denies any pain. Vitals - VSS, afebrile, normotensive, non tachycardic General - sitting up in bed, pleasant and conversant, NAD Abdomen - Fundus firm at U-1. No fundal tenderness Extremities - no edema Zoe is doing well and is making an appropriate recovery. She had mildly elevated blood pressures intrapartum and she ruled in for gestational hypertension. These have since resolved and she is normotensive. One twin still in the NICU but will likely be leaving soon. Will continue to encourage ambulation and today. Continue routine care. Anticipate dc home today. All questions answered. Patient desires nuvaring in 6wk, she is aware this is not compatible with . Diego VS, I&O, 24H, [place] Vital Signs/I&O Vital Signs Date Time Temp Pulse Resp B/P (MAP) Pulse Ox O2 Delivery O2 Flow Rate FiO2 11/05/20 18:00 98.2 95 18 125/91 (102) 11/05/20 10:40 98 Room Air SUMAYA QUIGLEY DO Nov 06, 2020 06:13
[2020-11-06] MEDS: ACETAMINOPHEN 500 MG TAB PO PRN (07:51)
[2020-11-06] MEDS: PRENATAL VITAMINS CHEWABLE TABLET PO SCH (07:51)
[2020-11-06] MEDS ORDERED: INFLUENZA QUADRIVALENT PF VACCINE 0.5ML SYRINGE IM ONE (09:00)
== END 2020-11-06 11:15 | disposition home or self-care (01) | DRG 807 ==
LOC: M LDI 07:47 → M OBS 18:39
PROVIDERS: ADMIT Obstetrics & Gynecology; ATTEND Obstetrics & Gynecology
PROC: 10E0XZZ Delivery of Products of Conception, External Approach (ICD-10-PCS; principal; 2020-11-04)
PROC: 3E033VJ Introduction of Other Hormone into Peripheral Vein, Percutaneous Approach (ICD-10-PCS; 2020-11-04)
PROC: 10907ZC Drainage of Amniotic Fluid, Therapeutic from Products of Conception, Via Natural or Artificial Opening (ICD-10-PCS; 2020-11-04)
PROC: 0HQ9XZZ Repair Perineum Skin, External Approach (ICD-10-PCS; 2020-11-04)
DX: O36.5931 Maternal care for other known or suspected poor fetal growth, third trimester, fetus 1 (principal); Z37.2 Twins, both liveborn; O30.043 Twin pregnancy, dichorionic/diamniotic, third trimester; Z3A.36 36 weeks gestation of pregnancy; O99.844 Bariatric surgery status complicating childbirth; O69.82X2 Labor and delivery complicated by other cord entanglement, without compression, fetus 2; O13.4 Gestational [pregnancy-induced] hypertension without significant proteinuria, complicating childbirth; O70.0 First degree perineal laceration during delivery

== ENCOUNTER 2021-08-24 06:11 | Day surgery (SDC) | payer OTHER ==
[~2021-08-24] VITALS: Ht 170.2 cm; Wt 82.5 kg
[~2021-08-24 06:11] MED LIST changes: -CVS10CAP8 PO; -DIBU10OI TOP; +DIBU28OI2 TOP; +ETON1VAG3 PO; +LEXA1TAB PO; +LR 1,000 ML IV ONE; +MELA10CA6 PO; +ZOLP5TAB PO
[2021-08-24] MEDS ORDERED: LIDOCAINE W/EPINEPHRINE 1% 20ML VIAL As Ordered ONE (07:15)
[2021-08-24] MEDS ORDERED: IODINE STRONG SOLN 15 ML BTL As Ordered ONE (07:16)
[2021-08-24] MEDS ORDERED: propofoL 200 MG/20 ML VIAL As Ordered ONE (07:20)
[2021-08-24] MEDS ORDERED: LIDOCAINE 2% 100MG/5ML SDV (FOR ANES.) As Ordered ONE (07:20)
[2021-08-24] MEDS ORDERED: ONDANSETRON 4MG/2ML VIAL As Ordered ONE (07:20)
[2021-08-24] MEDS ORDERED: fentaNYL 100 MCG/2 ML INJECTION (J3010) As Ordered ONE (07:20)
[2021-08-24] MEDS ORDERED: KETOROLAC 60MG 2ML VIAL As Ordered ONE (07:20)
[2021-08-24] MEDS ORDERED: dexameTHASONE 4 MG/ML 1ML VIAL (J1100 PER 1MG) As Ordered ONE (07:20)
[2021-08-24] MEDS ORDERED: MIDAZOLAM INJ 2MG/2ML VIAL (J2250 PER 1MG) As Ordered ONE (07:21)
[2021-08-24 07:26] LABS: HEMATOCRIT 35.5 % (36.0-47.0); MEAN CORPUSCULAR HEMOGLOBIN 27.4 pg (27.0-33.0); MEAN CORPUSCULAR HGB CONC 33.8 g/dl (32.0-36.5); MEAN CORPUSCULAR VOLUME 81.1 fl (80.0-96.0); PLATELET COUNT, AUTOMATED 201 10^3/uL (150-450); RED BLOOD COUNT 4.38 10^6/uL (4.00-5.40); WHITE BLOOD COUNT 3.5 10^3/uL (4.0-10.0)
[2021-08-24 07:38] LABS: HCG, SERUM QUALITATIVE NEGATIVE (NEGATIVE)
[2021-08-24] MEDS ORDERED: LIDOCAINE 5% OINT 30GM TUBE As Ordered ONE (07:39)
[2021-08-24] MEDS ORDERED: METOCLOPRAMIDE INJ 10MG/2ML VIAL (J2765 PER 1) As Ordered ONE (08:03)
[2021-08-24] MEDS ORDERED: ACETAMINOPHEN 1000MG 100ML IV BTL (OFIRMEV) (J0131 PER 10MG) As Ordered ONE (08:03)
[2021-08-24] MEDS ORDERED: LACRILUBE (AKWA TEARS) OPHTH OINT 3.5 GM As Ordered ONE (08:09)
--- NOTE | 2021-08-24 09:04 | ROOPDOC ---
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 Lugol's highlighted a lesion encompassing the entire ectocervix and transformation zone. SPECIMENS REMOVED: Left and right ectocervix DESCRIPTION OF PROCEDURE: The risks, benefits, indications, and alternatives of the procedure were reviewed with the patient and informed consent was obtained. The patient was taken to the operating room where general anesthesia was obtained without difficulty. The patient was then placed in the lithotomy position using Iglesia Stirrups. The patient was then prepped and draped in the usual sterile fashion and the bladder was drained using an in-and-out catheter. A sterile Graves speculum was then placed into the vagina and the cervix was visualized. Cervix with a large ectropion. Lugols solution was then copiously applied to the cervix which highlighted a lesion encompassing the entire ectocervix at the transformation zone. A paracervical block was then performed using 10ml of lidocaine with epinephrine. The LEEP device was the set to 60/60 blend and activated. The looped electrocautery wire was passed across the external cervical os in two passes. Production of adequate tissue samples was collected and sent to pathology for review. Superficial electrocoagulation of the cervical stroma was performed with excellent hemostasis achieved. Monsels solution was then applied to the cervix. Inspection revealed continued hemostasis. All instruments were then removed from the vagina. At the completion of the case the sponge and needle counts were correct x 2. The patient tolerated the procedure well and was taken to the PACU in stable condition. MANNY CASILLAS DO Aug 24, 2021 09:04
[2021-08-24 09:05] VITALS: BP 125/77
== END 2021-08-24 10:10 | disposition home or self-care (01) ==
LOC: M SDC 06:11
PROVIDERS: ATTEND Obstetrics & Gynecology
DX: R87.613 High grade squamous intraepithelial lesion on cytologic smear of cervix (HGSIL) (principal); J45.909 Unspecified asthma, uncomplicated; Z88.8 Allergy status to other drugs, medicaments and biological substances; Z98.84 Bariatric surgery status; Z87.891 Personal history of nicotine dependence
CPT/HCPCS: 36415; 57522; 81025; 84703; 85027; 88307; J0131; J1885; J2250; J2405; J2765; J3010

== ENCOUNTER 2022-09-22 07:27 | Day surgery (SDC) | payer OTHER ==
[~2022-09-22] VITALS: Ht 170.2 cm; Wt 74.1 kg
[~2022-09-22 07:27] MED LIST changes: +CETI-24; +FLUTISP; +LEXA1TAB2; -LR 1,000 ML IV ONE; +LR 1,000 ML IV SCH; +OMEP40CA5; +TRAZ1TAB11; +VITMTA PO; +ceFAZolin SOD 2 GM in IV 1 EA IV ONE
[2022-09-22 08:20] LABS: HEMATOCRIT 40.3 % (36.0-47.0); HEMOGLOBIN 12.7 g/dl (12.0-15.5); MEAN CORPUSCULAR HEMOGLOBIN 26.1 pg (27.0-33.0); MEAN CORPUSCULAR HGB CONC 31.5 g/dl (32.0-36.5); MEAN CORPUSCULAR VOLUME 82.8 fl (80.0-96.0); PLATELET COUNT, AUTOMATED 312 10^3/uL (150-450); RED BLOOD COUNT 4.87 10^6/uL (4.00-5.40); WHITE BLOOD COUNT 10.8 10^3/uL (4.0-10.0)
[2022-09-22] MEDS ORDERED: LIDOCAINE 2% 100MG/5ML SDV (FOR ANES.) As Ordered ONE (09:05)
[2022-09-22] MEDS ORDERED: SUGAMMADEX SODIUM 500 MG/5 ML VIAL (BRIDION) As Ordered ONE (09:05)
[2022-09-22] MEDS ORDERED: KETOROLAC 60MG 2ML VIAL As Ordered ONE (09:05)
[2022-09-22] MEDS ORDERED: ONDANSETRON 4MG 2ML VIAL As Ordered ONE (09:05)
[2022-09-22] MEDS ORDERED: ROCURONIUM BROMIDE 50MG/5ML VIAL As Ordered ONE ×2 (09:05→09:47)
[2022-09-22] MEDS ORDERED: MIDAZOLAM INJ 2MG/2ML VIAL As Ordered ONE (09:05)
[2022-09-22] MEDS ORDERED: fentaNYL 100 MCG/2 ML INJECTION As Ordered ONE (09:05)
[2022-09-22] MEDS ORDERED: propofoL 200 MG/20 ML VIAL As Ordered ONE (09:05)
[2022-09-22] MEDS ORDERED: METOCLOPRAMIDE INJ 10MG/2ML VIAL As Ordered ONE (09:08)
[2022-09-22] MEDS ORDERED: BUPIVACAINE LIPOSOME/PF 1.3% 20ML VIAL (13.3MG/ML)(EXPAREL) As Ordered ONE (09:11)
[2022-09-22] MEDS ORDERED: HYDROCORTISONE 1% CREAM 30GM As Ordered ONE (09:11)
[2022-09-22] MEDS ORDERED: BUPIVACAINE HCL 0.5% 30ML VIAL As Ordered ONE (09:11)
[2022-09-22] MEDS ORDERED: BUPIVACAINE/EPIN 0.25% 30ML VIAL As Ordered ONE (09:11)
[2022-09-22] MEDS ORDERED: BUPIVACAINE HCL 0.25% 30ML VIAL As Ordered ONE (09:11)
[2022-09-22] MEDS ORDERED: HYDROmorphone HCL 2MG/ML 1ML VIAL As Ordered ONE (09:41)
[2022-09-22] MEDS ORDERED: ACETAMINOPHEN 1000MG 100ML IV BAG As Ordered ONE (09:42)
[2022-09-22] MEDS ORDERED: ONDANSETRON 4MG 2ML VIAL IV PRN (11:35)
[2022-09-22] MEDS ORDERED: HYDROMORPHONE HCL 0.5 MG/ 0.5 ML SYRINGE IV PRN (11:35)
[2022-09-22] MEDS ORDERED: LR 1,000 ML IV SCH (11:35)
[2022-09-22] MEDS ORDERED: fentaNYL 100 MCG/2 ML INJECTION IV PRN (11:35)
[2022-09-22] MEDS ORDERED: oxyCODONE 5MG TAB PO PRN (11:35)
[2022-09-22 13:00] VITALS: BP 115/70
== END 2022-09-22 13:10 | disposition home or self-care (01) ==
LOC: M SDC 07:27
PROVIDERS: ATTEND Obstetrics & Gynecology
DX: R10.2 Pelvic and perineal pain (principal); N92.0 Excessive and frequent menstruation with regular cycle; N80.03 Adenomyosis of the uterus; Z88.0 Allergy status to penicillin; F17.200 Nicotine dependence, unspecified, uncomplicated; F41.9 Anxiety disorder, unspecified; J45.909 Unspecified asthma, uncomplicated; Z79.899 Other long term (current) drug therapy
CPT/HCPCS: 36415; 57283; 58571; 81025; 85027; 86850; 86900; 86901; 87635; 88307; J2405